=== PATIENT | female | born 1980 | race Caucasian/White ===

== ENCOUNTER 2020-05-05 09:21 | Outpatient (CLI) | payer OTHER | END 2020-05-05 09:27 | disposition home or self-care (01) | LOC: RX STUDY 09:21 | DX: N70.11 Chronic salpingitis (principal); N80.3 Endometriosis of pelvic peritoneum ==

== ENCOUNTER → 2021-07-20 | Outpatient (CLI) | payer OTHER | END | disposition home or self-care (01) | LOC: LAB 11:00 | PROVIDERS: ATTEND Radiology Diagnostic Radiology | DX: D68.61 Antiphospholipid syndrome (principal) ==

== ENCOUNTER 2021-07-23 06:54 | Outpatient (CLI) | payer OTHER | END 2021-07-23 07:17 | disposition home or self-care (01) | LOC: LAB 06:54 | PROVIDERS: ATTEND Internal Medicine Hematology & Oncology | DX: D50.8 Other iron deficiency anemias (principal); R79.9 Abnormal finding of blood chemistry, unspecified; I10 Essential (primary) hypertension; R74.02 Elevation of levels of lactic acid dehydrogenase [LDH]; K76.89 Other specified diseases of liver; D68.59 Other primary thrombophilia; D68.61 Antiphospholipid syndrome; D68.51 Activated protein C resistance; D68.69 Other thrombophilia; D68.62 Lupus anticoagulant syndrome; D68.312 Antiphospholipid antibody with hemorrhagic disorder; E72.12 Methylenetetrahydrofolate reductase deficiency; E72.11 Homocystinuria; I26.99 Other pulmonary embolism without acute cor pulmonale; N39.0 Urinary tract infection, site not specified ==

== ENCOUNTER 2021-07-26 08:22 | Outpatient (CLI) | payer OTHER | END 2021-07-26 08:27 | disposition home or self-care (01) | LOC: MAMO-SONO 08:22 | PROVIDERS: ATTEND Internal Medicine Hematology & Oncology | DX: D68.61 Antiphospholipid syndrome (principal); I26.99 Other pulmonary embolism without acute cor pulmonale ==

== ENCOUNTER 2022-01-07 06:56 | Outpatient (CLI) | payer OTHER | END 2022-01-07 07:23 | disposition home or self-care (01) | LOC: LAB 06:56 | PROVIDERS: ATTEND Internal Medicine Hematology & Oncology | DX: D50.8 Other iron deficiency anemias (principal); R79.9 Abnormal finding of blood chemistry, unspecified; I10 Essential (primary) hypertension; R74.02 Elevation of levels of lactic acid dehydrogenase [LDH]; K76.89 Other specified diseases of liver; D51.1 Vitamin B12 deficiency anemia due to selective vitamin B12 malabsorption with proteinuria; D51.0 Vitamin B12 deficiency anemia due to intrinsic factor deficiency; E03.8 Other specified hypothyroidism; E06.3 Autoimmune thyroiditis; E72.11 Homocystinuria; E72.12 Methylenetetrahydrofolate reductase deficiency; I26.99 Other pulmonary embolism without acute cor pulmonale; D68.61 Antiphospholipid syndrome; D68.62 Lupus anticoagulant syndrome; R10.2 Pelvic and perineal pain; E72.19 Other disorders of sulfur-bearing amino-acid metabolism; Z34.81 Encounter for supervision of other normal pregnancy, first trimester ==

== ENCOUNTER 2022-01-17 07:30 | Outpatient (CLI) | payer OTHER | END 2022-01-17 07:31 | disposition home or self-care (01) | LOC: NUCLEAR 07:30 | PROVIDERS: ATTEND Obstetrics & Gynecology | DX: Z34.81 Encounter for supervision of other normal pregnancy, first trimester (principal); E72.19 Other disorders of sulfur-bearing amino-acid metabolism; Z86.711 Personal history of pulmonary embolism ==

== ENCOUNTER → 2022-03-09 08:13 | Outpatient (CLI) | payer OTHER | END | disposition home or self-care (01) | LOC: LAB 08:13 | PROVIDERS: ATTEND Internal Medicine Hematology & Oncology | DX: D50.8 Other iron deficiency anemias (principal); R79.9 Abnormal finding of blood chemistry, unspecified; I10 Essential (primary) hypertension; R74.02 Elevation of levels of lactic acid dehydrogenase [LDH]; K76.89 Other specified diseases of liver; D51.8 Other vitamin B12 deficiency anemias; E03.8 Other specified hypothyroidism; E72.11 Homocystinuria; D68.61 Antiphospholipid syndrome; D68.59 Other primary thrombophilia; I26.99 Other pulmonary embolism without acute cor pulmonale ==

== ENCOUNTER → 2022-06-06 07:36 | Outpatient (CLI) | payer OTHER | END | disposition home or self-care (01) | LOC: LAB 07:36 | PROVIDERS: ATTEND Internal Medicine Hematology & Oncology | DX: D50.8 Other iron deficiency anemias (principal); R79.9 Abnormal finding of blood chemistry, unspecified; I10 Essential (primary) hypertension; R74.02 Elevation of levels of lactic acid dehydrogenase [LDH]; K76.89 Other specified diseases of liver; D51.8 Other vitamin B12 deficiency anemias; E03.8 Other specified hypothyroidism; D68.59 Other primary thrombophilia; D68.61 Antiphospholipid syndrome; E72.11 Homocystinuria; I26.99 Other pulmonary embolism without acute cor pulmonale ==

== ENCOUNTER 2022-08-03 09:12 | Outpatient (CLI) | payer OTHER | END 2022-08-03 09:13 | disposition home or self-care (01) | LOC: LAB 09:12 | PROVIDERS: ATTEND Internal Medicine Hematology & Oncology | DX: E03.8 Other specified hypothyroidism (principal); I26.99 Other pulmonary embolism without acute cor pulmonale; D68.61 Antiphospholipid syndrome; E72.12 Methylenetetrahydrofolate reductase deficiency; E06.3 Autoimmune thyroiditis; I10 Essential (primary) hypertension; R74.02 Elevation of levels of lactic acid dehydrogenase [LDH]; D50.8 Other iron deficiency anemias; K76.89 Other specified diseases of liver ==

== ENCOUNTER 2023-02-22 10:39 | Outpatient (CLI) | payer OTHER ==
[2023-02-22 12:19] LABS: HEMATOCRIT 40.1 % (36.0-45.00); HEMOGLOBIN 13.6 g/dL (12.0-15.00); MEAN CELL VOLUME 91.4 fL (80.00-100.00); MEAN CORPUSCULAR HEMOGLOBIN 30.9 pg (27.00-32.0); MEAN CORPUSCULAR HGB CONC 33.8 g/dl (32.0-36.0); PLATELET COUNT 220 K/uL (150-450); RED BLOOD COUNT 4.39 M/uL (4.00-6.00); RED CELL DISTRIBUTION WIDTH 13.6 % (11.5-14.5)
[2023-02-22 12:45] LABS: ALBUMIN 3.9 gm/dL (3.4-5.0); BILIRUBIN TOTAL 0.69 mg/dL (0.3-1.2); CALCIUM 8.8 mg/dL (8.5-10.1); CREATININE SERUM 0.84 mg/dL (0.55-1.02); GFR 74.72; GLOBULINA 4.2 G/DL (2.4-3.5); POTASSIUM 4.17 mEq/L (3.5-5.1); TOTAL PROTEIN 8.1 gm/dL (6.4-8.2)
[2023-02-24 10:52] LABS: VITAMIN D3 25 HYDROXY 18.84 ng/ml (30-120)
== END 2023-02-22 10:41 | disposition home or self-care (01) ==
LOC: LAB 10:39
PROVIDERS: ATTEND Internal Medicine Hematology & Oncology
DX: D50.8 Other iron deficiency anemias (principal); R79.9 Abnormal finding of blood chemistry, unspecified; I10 Essential (primary) hypertension; R74.02 Elevation of levels of lactic acid dehydrogenase [LDH]; K76.89 Other specified diseases of liver; D51.8 Other vitamin B12 deficiency anemias; E03.8 Other specified hypothyroidism; I26.99 Other pulmonary embolism without acute cor pulmonale; D68.61 Antiphospholipid syndrome; E06.3 Autoimmune thyroiditis; I34.0 Nonrheumatic mitral (valve) insufficiency; E78.2 Mixed hyperlipidemia; R73.01 Impaired fasting glucose; E07.89 Other specified disorders of thyroid; R80.9 Proteinuria, unspecified; E55.9 Vitamin D deficiency, unspecified; N18.2 Chronic kidney disease, stage 2 (mild); R06.02 Shortness of breath; R07.2 Precordial pain; R00.2 Palpitations

== ENCOUNTER → 2023-05-31 09:48 | Outpatient (CLI) | payer OTHER ==
[2023-05-31 11:36] LABS: HEMATOCRIT 37.9 % (36.0-45.00); MEAN CELL VOLUME 91.7 fL (80.00-100.00); MEAN CORPUSCULAR HEMOGLOBIN 31.5 pg (27.00-32.0); MEAN CORPUSCULAR HGB CONC 34.4 g/dl (32.0-36.0); PLATELET COUNT 260 K/uL (150-450); RED BLOOD COUNT 4.13 M/uL (4.00-6.00); RED CELL DISTRIBUTION WIDTH 13.8 % (11.5-14.5)
[2023-05-31 11:39] LABS: ALBUMIN 3.9 gm/dL (3.4-5.0); BILIRUBIN TOTAL 0.59 mg/dL (0.3-1.2); CALCIUM 8.9 mg/dL (8.5-10.1); CREATININE SERUM 0.84 mg/dL (0.55-1.02); GFR 74.72; GLOBULINA 3.7 G/DL (2.4-3.5); POTASSIUM 4.07 mEq/L (3.5-5.1); TOTAL PROTEIN 7.6 gm/dL (6.4-8.2)
[2023-06-02 12:43] LABS: FOLIC ACID > 20.00 ng/ml (4.78-20)
[2023-06-03 13:41] LABS: MANUAL PLATELET COUNT 404
[2023-06-03 13:47] LABS: PLATELET ESTIMATE NORMAL (NORMAL)
== END | disposition home or self-care (01) ==
LOC: LAB 09:48
PROVIDERS: ATTEND Internal Medicine Hematology & Oncology
DX: I26.99 Other pulmonary embolism without acute cor pulmonale (principal); D68.62 Lupus anticoagulant syndrome; E72.12 Methylenetetrahydrofolate reductase deficiency; E06.3 Autoimmune thyroiditis

== ENCOUNTER 2023-05-31 10:34 | Outpatient (CLI) | payer OTHER | END 2023-05-31 10:44 | disposition home or self-care (01) | LOC: RAD 10:34 | PROVIDERS: ATTEND Internal Medicine Hematology & Oncology | DX: I26.99 Other pulmonary embolism without acute cor pulmonale (principal); D68.61 Antiphospholipid syndrome; E72.12 Methylenetetrahydrofolate reductase deficiency; E06.3 Autoimmune thyroiditis ==

== ENCOUNTER → 2024-07-24 08:09 | Outpatient (CLI) | payer OTHER ==
[2024-07-24 10:37] LABS: PH,URINE 6.5 (5.0-8.0); URINE APPEARANCE Clear; URINE BILIRRUBIN Negative (NEGATIVE); URINE BLOOD NHT; URINE COLOR Yellow; URINE GLUCOSE Negative (NEGATIVE); URINE KETONE Negative (NEGATIVE); URINE LEUKOCYTE Negative; URINE NITRATE Negative; URINE PROTEIN Negative (NEGATIVE); URINE UROBILINOGEN 0.2 E.U./dl
[2024-07-24 10:41] LABS: URINE BACTERIA 1126.8 uL (0.0-1933); URINE EPITHELIAL CELLS 3.4 uL (0.0-38.8); URINE RBC 8.9 uL (0.0-20.8)
[2024-07-24 10:45] LABS: HEMATOCRIT 38.9 % (36.0-45.00); HEMOGLOBIN 13.3 g/dL (12.0-15.00); MEAN CELL VOLUME 92.9 fL (80.00-100.00); MEAN CORPUSCULAR HEMOGLOBIN 31.7 pg (27.00-32.0); MEAN CORPUSCULAR HGB CONC 34.2 g/dl (32.0-36.0); PLATELET COUNT 274 K/uL (150-450); RED BLOOD COUNT 4.19 M/uL (4.00-6.00); RED CELL DISTRIBUTION WIDTH 13.4 % (11.5-14.5)
[2024-07-24 10:47] LABS: URINE WBC 0 uL (0.0-23.2)
[2024-07-24 11:17] LABS: ALBUMIN 3.7 gm/dL (3.4-5.0); BILIRUBIN TOTAL 0.57 mg/dL (0.3-1.2); CHOL HDL RATIO 2.9 (0-5.0); CREATININE SERUM 0.77 mg/dL (0.55-1.02); GFR 81.82; GLOBULINA 3.7 G/DL (2.4-3.5); POTASSIUM 4.13 mEq/L (3.5-5.1); T4 FREE 1.06 NG/ML (0.76-1.46); TOTAL PROTEIN 7.4 gm/dL (6.4-8.2); TSH 1.77 uIU/mL (0.358-3.74)
[2024-07-24 12:13] LABS: URIC ACID 3.5 mg/dL (2.5-7.5)
[2024-07-25 16:58] LABS: FOLIC ACID > 20.00 ng/ml (4.78-20)
[2024-07-26 07:52] LABS: PLATELET ESTIMATE NORMAL (NORMAL)
== END | disposition home or self-care (01) ==
LOC: LAB 08:09
PROVIDERS: ATTEND Internal Medicine Hematology & Oncology
DX: I26.99 Other pulmonary embolism without acute cor pulmonale (principal); D68.61 Antiphospholipid syndrome; D68.62 Lupus anticoagulant syndrome; E72.11 Homocystinuria; E72.12 Methylenetetrahydrofolate reductase deficiency; E06.3 Autoimmune thyroiditis; D50.8 Other iron deficiency anemias; R79.9 Abnormal finding of blood chemistry, unspecified; I10 Essential (primary) hypertension; R74.02 Elevation of levels of lactic acid dehydrogenase [LDH]; K76.89 Other specified diseases of liver; D51.8 Other vitamin B12 deficiency anemias; I34.0 Nonrheumatic mitral (valve) insufficiency; R22.1 Localized swelling, mass and lump, neck; I87.2 Venous insufficiency (chronic) (peripheral); R20.2 Paresthesia of skin; E78.2 Mixed hyperlipidemia; R73.01 Impaired fasting glucose; N18.2 Chronic kidney disease, stage 2 (mild); E55.9 Vitamin D deficiency, unspecified; R06.02 Shortness of breath; R00.2 Palpitations; R07.2 Precordial pain

== ENCOUNTER → 2024-08-17 | Outpatient (CLI) | payer OTHER | END | disposition home or self-care (01) | LOC: MAMO-SONO 13:10 | PROVIDERS: ATTEND Obstetrics & Gynecology | DX: R92.2 Inconclusive mammogram (principal); Z12.31 Encounter for screening mammogram for malignant neoplasm of breast; R10.2 Pelvic and perineal pain; N92.0 Excessive and frequent menstruation with regular cycle; M71.21 Synovial cyst of popliteal space [Baker], right knee; I34.0 Nonrheumatic mitral (valve) insufficiency; R22.1 Localized swelling, mass and lump, neck; I87.2 Venous insufficiency (chronic) (peripheral); R20.2 Paresthesia of skin; E78.2 Mixed hyperlipidemia; R73.01 Impaired fasting glucose; N18.2 Chronic kidney disease, stage 2 (mild); E55.9 Vitamin D deficiency, unspecified; R06.02 Shortness of breath; R00.2 Palpitations; R07.2 Precordial pain; E07.89 Other specified disorders of thyroid | CPT/HCPCS: 70540; 73722 ==

== ENCOUNTER → 2024-08-23 08:24 | Outpatient (CLI) | payer OTHER ==
[2024-08-23 09:48] LABS: HEMATOCRIT 37.9 % (36.0-45.00); HEMOGLOBIN 12.8 g/dL (12.0-15.00); MEAN CELL VOLUME 92.8 fL (80.00-100.00); MEAN CORPUSCULAR HEMOGLOBIN 31.2 pg (27.00-32.0); MEAN CORPUSCULAR HGB CONC 33.7 g/dl (32.0-36.0); PLATELET COUNT 275 K/uL (150-450); RED BLOOD COUNT 4.09 M/uL (4.00-6.00); RED CELL DISTRIBUTION WIDTH 13.9 % (11.5-14.5)
[2024-08-23 10:10] LABS: INR 1.03; PROTHROMBIN TIME 11.2 SECONDS (9.0-11.5)
[2024-08-23 10:49] LABS: ANION GAP 7 (10.0-20.0); BLOOD UREA NITROGEN 16 mg/dL (7-18); BUN CREA RATIO 24 (7.0-25.0); CALCIUM 8.8 mg/dL (8.5-10.1); CARBON DIOXIDE 27 mEq/L (21-32); CHLORIDE 109 mmol/L (98-107); CREATININE SERUM 0.68 mg/dL (0.55-1.02); GFR 94.43; GLUCOSE FASTING 115 mg/dL (65-100); OSMOLALITY SERUM 278 MOSM/KG (275-295); POTASSIUM 4.56 mEq/L (3.5-5.1); SODIUM 138 mmol/L (136-145)
[2024-08-23 10:51] LABS: C-REACTIVE PROTEIN < 0.29 MG/DL (0.00-0.29)
== END | disposition home or self-care (01) ==
LOC: LAB 08:24
DX: D68.9 Coagulation defect, unspecified (principal); L02.91 Cutaneous abscess, unspecified; I74.9 Embolism and thrombosis of unspecified artery